=== PATIENT | female | born 1985 | race Two or more races ===

== ENCOUNTER 2017-09-01 02:18 | Emergency (ER) | payer OTHER ==
--- NOTE | 2017-09-01 02:20 | EDPHY ---
H & P Time Seen by Provider: 09/01/17 02:20 HPI/ROS: HPI CHIEF COMPLAINT: Right ankle pain and swelling HISTORY OF PRESENT ILLNESS: Patient 32-year-old female, she is otherwise healthy with no significant medical history she presents emergency room with right lateral ankle pain and swelling. She states that she was in high heels this evening she had alcohol this evening and was walking down the stairs and her ankle rolled. She now has pain and swelling to the right lateral malleolus. She is able to bear weight. She has full range of motion but has discomfort. Current pain level 3/10. 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 Denies illicit drugs. Family History: Noncontributory ROS REVIEW OF SYSTEMS: A comprehensive 10 point review of systems is otherwise negative aside from elements mentioned in the history of present illness. Exam Constitutional appears well nontoxic no acute distress triage nursing summary reviewed, vital signs reviewed, awake/alert. Eyes normal conjunctivae and sclera, EOMI, PERRLA. HENT normal inspection, atraumatic, moist mucus membranes, no epistaxis, neck supple/ no meningismus, no raccoon eyes. Respiratory clear to auscultation bilaterally, normal breath sounds, no respiratory distress, no wheezing. Cardiovascular rate normal, regular rhythm, no murmur, no edema, distal pulses normal. Gastrointestinal soft, non-tender, no rebound, no guarding, normal bowel sounds, no distension, no pulsatile mass. Genitourinary no CVA tenderness. Musculoskeletal right lower extremity: Neurovascular intact good distal pulse, good cap refill. Mild tender palpation and swelling over the right lateral malleolus, no midline vertebral tenderness, full range of motion, no calf swelling, no tenderness of extremities, no meningismus, good pulses, neurovascularly intact. Skin pink, warm, & dry, no rash, skin atraumatic. Neurologic awake, alert and oriented x 3, AAOx3, moves all 4 extremities equally, motor intact, sensory intact, CN II-XII intact, normal cerebellar, normal vision, normal speech. Psychiatric normal mood/affect. Heme/Lymph/Immune no lymphadenopathy. Differential Diagnosis: Includes but is not limited to in a particular order ankle sprain, ankle contusion, ankle fracture, ligamentous disruption Medical Decision Making: Plan for this patient x-ray the right ankle. She has swelling and tenderness over the lateral malleolus she will need a walking boot and crutches. She will need to ice it, and follow up with Orthopedics on outpatient basis. Re-evaluation: Ankle x-ray reviewed. Soft tissue swelling over the lateral malleolus. But no fracture. Image interpreted by myself. Patient be placed on crutches, walking boot for comfort. Recommend ice, elevation, anti-inflammatory pain medicine. If she continues to have pain I do recommend she follows up with Orthopedics. She does have an ankle sprain on exam and on x-ray. Soft tissue ligamentous disruption. Source: Patient Constitutional: Initial Vital Signs Heart Rate 100 09/01/17 02:20 Respiratory Rate 18 09/01/17 02:20 Blood Pressure 106/85 H 09/01/17 02:20 O2 Sat (%) 99 09/01/17 02:20 O2 Delivery Mode Room Air Allergies/Adverse Reactions: ibuprofen Allergy (Verified 09/01/17 02:21) latex Allergy (Verified 09/01/17 02:21) nickel Allergy (Verified 09/01/17 02:21) Home Medications: Medication Instructions Recorded Sertraline HCl 09/01/17 ZOLPIDEM TARTRATE 09/01/17 Departure - Departure Disposition: Home, Routine, Self-Care Clinical Impression: Ankle sprain Qualifiers: Encounter type: initial encounter Involved ligament of ankle: unspecified ligament Laterality: right Qualified Code(s): S93.401A - Sprain of unspecified ligament of right ankle, initial encounter Condition: Good Instructions: Ankle Sprain (ED) Additional Instructions: 1. Keep your ankle iced, next 48 hours. 2. Anti-inflammatory pain medicine like Tylenol for pain control. 3. Keep it elevated. 4. Use her walking boot and crutches for help support. 5. If you have significant pain or it is not getting better follow up with Orthopedics. Referrals: NONE *PRIMARY CARE P,. [Primary Care Provider] - As per Instructions Ace Ang MD [Medical Doctor] - As per Instructions
[2017-09-01 02:23] VITALS: BP 106/85
[2017-09-01] MEDS ORDERED: ACETAMINOPHEN 500 MG TAB PO ONE (03:11)
[2017-09-01] MEDS ORDERED: ACETAMINOPHEN 500 MG TAB ONE (03:12)
== END 2017-09-01 03:12 | disposition home or self-care (01) ==
DX: S93.401A Sprain of unspecified ligament of right ankle, initial encounter (principal); Z91.040 Latex allergy status; X50.9XXA Other and unspecified overexertion or strenuous movements or postures, initial encounter; Y92.89 Other specified places as the place of occurrence of the external cause; Y99.8 Other external cause status; Y93.01 Activity, walking, marching and hiking